=== PATIENT | male | born 1955 | race African-American/Black ===

== ENCOUNTER 2017-09-15 09:32 | Inpatient (IN) | payer OTHER ==
[2017-09-15 10:09] VITALS: BMI 27.9
--- NOTE | 2017-09-15 10:35 | HP ---
Admission [facility] Chief Complaint: I know I drink to much and I need help Allergies/Adverse Reactions: Allergies Allergy/AdvReac Type Severity Reaction Status Date / Time No Known Allergies Allergy Verified 09/15/17 10:18 History of Present Illness: 61 yo gentleman here for detox from alcohol - was in [place] ED yesterday for a seizure - alcohol related - on methadone program - had dose today and has bottle from [facility] for tomorrow . Exam Limitations: No Limitations - Ebola screening Have you traveled outside of the country in the last 21 days: No Have you had contact with anyone from an Ebola affected area: No Have you been sick,other than usual withdrawal symptoms: No Do you have a fever: No - Review of Systems Constitutional: Loss of Appetite, Malaise, Changes in sleep, Weakness EENT: reports: No Symptoms Reported Respiratory: reports: No Symptoms reported Cardiac: reports: No Symptoms Reported GI: reports: Poor Appetite : reports: Frequency Musculoskeletal: reports: Back Pain Integumentary: reports: No Symptoms Reported Neuro: reports: Headache Endocrine: reports: No Symptoms Reported Hematology: reports: No Symptoms Reported Psychiatric: reports: Mood/Affect Appropiate Other Systems: Reviewed and Negative Patient History - Patient Medical History Hx Anemia: No Hx Asthma: No Hx Chronic Obstructive Pulmonary Disease (COPD): No Hx Cancer: No Hx Cardiac Disorders: No Hx Congestive Heart Failure: No Hx Hypertension: Yes (on meds) Hx Hypercholesterolemia: No Hx Pacemaker: No HX Cerebrovascular Accident: No Hx Seizures: Yes (on meds) Hx Dementia: No Hx Diabetes: No Hx Gastrointestinal Disorders: No Hx Liver Disease: No Hx Genitourinary Disorders: No Hx Sexually Transmitted Disorders: No Hx Renal Disease (ESRD): No Hx Thyroid Disease: No Hx Human Immunodeficiency Virus (HIV): No Hx Hepatitis C: No Hx Depression: Yes (history of hospitalizations 'a while ago') Hx Suicide Attempt: No Hx Bipolar Disorder: No Hx Schizophrenia: Yes (not hearing voices now) - Patient Surgical History Past Surgical History: No - PPD History Previous Implant?: Yes Documented Results: Negative w/o proof Implanted On Prior [facility] Admission?: No PPD to be Administered?: Yes - Reproductive History Patient is a Female of Child Bearing Age (11 -55 yrs old): No (male) - Smoking Cessation Smoking history: Current every day smoker Have you smoked in the past 12 months: Yes Aproximately how many cigarettes per day: 10 Initiated information on smoking cessation: Yes 'Breaking Loose' booklet given: 09/15/17 (give on floor) - Substance & Tx. History Hx Alcohol Use: Yes Hx Substance Use: No Substance Use Type: Alcohol Hx Substance Use Treatment: Yes (methadone program) - Substances Abused Alcohol Route: Oral Frequency: Daily Amount used: 1 pint liquor Age of first use: 15 Date of Last Use: 09/14/17 Family Disease History - Family Disease History Family Disease History: Heart Disease: Father (,etoh), Mother () , Other: Father, Mother, Brother ( - heart, etoh), Sister (one living - healthy), Son (one - healthy), Daughter (two - healthy) Admission Physical Exam S - Vital Signs Vital Signs: Vital Signs - 24 hr 09/15/17 10:06 Temperature 95.8 F L Pulse Rate 61 Respiratory 20 Rate Blood Pressure 117/76 - Physical General Appearance: Yes: Nourished, Appropriately Dressed, Mild Distress, Anxious HEENTM: Yes: Hearing grossly Normal, Normal ENT Inspection, Normocephalic, Normal Voice Respiratory: Yes: Normal Breath Sounds, No Respiratory Distress Neck: Yes: No masses,lesions,Nodules, Supple Breast: Yes: Breast Exam Deferred Cardiology: Yes: Regular Rhythm, Regular Rate Abdominal: Yes: Flat, Soft Genitourinary: Yes: Frequency Back: Yes: Normal Inspection Musculoskeletal: Yes: full range of Motion, Gait Steady Extremities: Yes: Normal Inspection, Normal Range of Motion Neurological: Yes: Alert, Normal Mood/Affect, Normal Response Integumentary: Yes: Normal Color, Warm Lymphatic: Yes: Within Normal Limits - Diagnostic (1) Alcohol dependence with uncomplicated withdrawal Current Visit: Yes Status: Chronic (2) Methadone maintenance therapy patient Current Visit: Yes Status: Acute Comment: [facility] [phone] - brought in bottle for tomorrow - verified by myself (3) Nicotine dependence Current Visit: Yes Status: Acute Qualifiers: Nicotine product type: cigarettes Substance use status: uncomplicated Qualified Code(s): F17.210 - Nicotine dependence, cigarettes, uncomplicated (4) HTN (hypertension) Current Visit: Yes Status: Acute Qualifiers: Hypertension type: essential hypertension Qualified Code(s): I10 - Essential (primary) hypertension (5) History of seizure Current Visit: Yes Status: Acute Comment: on meds Cleared for Admission [facility] - Detox or Rehab [facility] Level of Care: Medically Managed Detox Regimen/Protocol: Librium [facility] Breath Alcohol Content Breath Alcohol Content: 0 Urine Drug Screen - Results Drug Screen Negative: No Urine Drug Screen Results: MTD-Methadone
[2017-09-15] MEDS ORDERED: MAG HYDROX/AL HYDROX/SIMETH 30 ML UNIT-DOSE CUP PO PRN (10:40)
[2017-09-15] MEDS ORDERED: MENTHOL/PHENOL 1 EACH UD MM PRN (10:40)
[2017-09-15] MEDS ORDERED: hydrOXYzine PAMOATE 25 MG CAPSULE (FP) PO PRN (10:40)
[2017-09-15] MEDS ORDERED: IBUPROFEN 400 MG TABLET (FP) PO PRN (10:40)
[2017-09-15] MEDS ORDERED: guaiFENesin/D-METHORPHAN HB 10 ML UNIT-DOSE CUPS PO PRN (10:40)
[2017-09-15] MEDS ORDERED: MAGNESIUM CITRATE 300 ML BOTTLE PO PRN (10:40)
[2017-09-15] MEDS ORDERED: ACETAMINOPHEN 325 MG TABLET (FP) PO PRN (10:40)
[2017-09-15] MEDS ORDERED: LOPERAMIDE HCL 2 MG CAPSULE PO PRN (10:40)
[2017-09-15] MEDS ORDERED: MAGNESIUM HYDROX 2400MG/30ML ORAL SUSPENSION 30 ML CUP PO PRN (10:40)
[2017-09-15] MEDS ORDERED: P-EPHED 60MG/TRIPROLIDI 2.5MG TABLET PO PRN (10:40)
[2017-09-15] MEDS ORDERED: chlordiazePOXIDE HCL 25 MG CAPSULE PO PRN (10:40)
[2017-09-15] MEDS ORDERED: chlordiazePOXIDE HCL 25 MG CAPSULE PO ONE (11:45)
[2017-09-15] MEDS: NICOTINE 21 MG/24 HOURS TOPICAL PATCH TD SCH (12:34)
[2017-09-15 15:34] LABS: URINE APPEARANCE SLCLOUDY; URINE BILIRUBIN NEGATIVE (NEGATIVE); URINE BLOOD NEGATIVE (NEGATIVE); URINE COLOR YELLOW; URINE GLUCOSE (UA) NEGATIVE (NEGATIVE); URINE KETONE NEGATIVE (NEGATIVE); URINE NITRITE NEGATIVE (NEGATIVE); URINE PROTEIN NEGATIVE (NEGATIVE); URINE UROBILINOGEN NEGATIVE mg/dL (0.2-1.0)
[2017-09-15 15:40] LABS: URINE LEUK ESTERASE 2+ (NEGATIVE)
[2017-09-15 15:48] LABS: URINE HYALINE CAST 1 /lpf; URINE RBC <1 /hpf (0-3); URINE WBC 12 /hpf (3-5)
--- NOTE | 2017-09-15 17:12 | CONSULT ---
[facility] Psychiatric Consult - Data Date of interview: 09/15/17 Admission source: [facility] Identifying data: First admission to [facility] for this 61 y/o AA male seeking detox treatment on for alcohol dependence.Patient is single,a father of three,homeless (penitentiary),unemployed and supported on SSI benefits. Substance Abuse History: Confirmed by patient in this session.See current [facility] report for details : Smoking history: Current every day smoker. Have you smoked in the past 12 months: Yes. Aproximately how many cigarettes per day: 10. Initiated information on smoking cessation: Yes. 'Breaking Loose' booklet given: 09/15/17 (give on floor). - Substance & Tx. History. Hx Alcohol Use: Yes. Hx Substance Use: No. Substance Use Type: Alcohol. Hx Substance Use Treatment: Yes (methadone program). - Substances Abused. Alcohol. Route: Oral. Frequency: Daily. Amount used: 1 pint liquor. Age of first use: 15. Date of Last Use: 09/14/17 Medical History: Seizure disorder and hypertension. Psychiatric History: Patient admits to a remote history of psychiatric hospitalizations ([facility] and [facility]).Diagnosed with Schizoaffective Disorder.Maintained on prozac,seroquel and buspar (doses not recalled).Mr Oli is followed at [facility] in [facility].Currently on methadone maintenance (50 mg/day).Patient denies history of suicide attempts. Physical/Sexual Abuse/Trauma History: Patient denies. Additional Comment: Urine Drug Screen Results: MTD-Methadone.Noted. Mental Status Exam - Mental Status Exam Alert and Oriented to: Time, Place, Person Cognitive Function: Grossly Intact Patient Appearance: Disheveled Mood: Nervous, Withdrawn, Anxious, Irritable Affect: Mood Congruent Patient Behavior: Fatigued, Appropriate, Cooperative Speech Pattern: Clear, Appropriate Voice Loudness: Normal Thought Process: Goal Oriented Thought Disorder: Not Present Hallucinations: Denies Suicidal Ideation: Denies Homicidal Ideation: Denies Insight/Judgement: Poor Sleep: Poorly, Difficulty falling asleep Appetite: Good Muscle strength/Tone: Normal Gait/Station: Normal Psychiatric Findings - Problem List ([place] 1, 2,3) (1) Alcohol dependence with uncomplicated withdrawal Current Visit: Yes Status: Acute (2) Opioid dependence on agonist therapy Current Visit: Yes Status: Acute (3) Nicotine dependence Current Visit: Yes Status: Acute Qualifiers: Nicotine product type: cigarettes Substance use status: in withdrawal Qualified Code(s): F17.213 - Nicotine dependence, cigarettes, with withdrawal (4) Schizoaffective disorder Current Visit: Yes Status: Chronic Comment: As per self-report.On medications.Currently with OPD care. (5) Insomnia Current Visit: Yes Status: Acute - Initial Treatment Plan Initial Treatment Plan: Psychoeducation.Sleep hygiene.Detoxification.Resume prozac 20 mg/day + depakote 500 mg po bid + seroquel 50 mg po hs (to be titrated ).Side effects/benefits of each drug are discussed with the patient in this session.Mr Baird is in agreement with this plan of care.Will follow valproic acid level.Observation.
[2017-09-15] MEDS: chlordiazePOXIDE HCL 25 MG CAPSULE PO SCH ×2 (17:13→22:46)
[2017-09-15] MEDS: NICOTINE POLACRILEX 4 MG GUM BUC PRN (17:57)
[2017-09-15 19:31] LABS: URINE LEUK ESTERASE TRACE (NEGATIVE)
[2017-09-15] MEDS ORDERED: PATIENT'S OWN MEDICATION (NON-FORMULARY) (Levetiracetam [Keppra -] 750 MG) PO SCH (22:00)
[2017-09-15] MEDS: DIVALPROEX SODIUM 500 MG TABLET E.C. PO SCH (22:46)
[2017-09-15] MEDS: GABAPENTIN 400 MG CAPSULE (FP) PO SCH (22:46)
[2017-09-15] MEDS: THIAMINE HCL 100 MG TABLET (FP) PO SCH (22:46)
[2017-09-15] MEDS: QUEtiapine FUMARATE 50 MG TABLET PO SCH (22:46)
[2017-09-15] MEDS: levETIRAcetam 250 MG TABLET (FP) PO SCH (22:46)
[2017-09-16] MEDS ORDERED: METHADONE HCL 40 MG DISPERSABLE TABLET ONE (05:00)
[2017-09-16] MEDS ORDERED: METHADONE HCL 10 MG TABLET ONE (05:00)
[2017-09-16] MEDS ORDERED: METHADONE HCL 10 MG TABLET PO ONE (06:00)
[2017-09-16] MEDS ORDERED: METHADONE 40 MG, METHADONE 10 MG PO ONE (06:00)
[2017-09-16] MEDS: chlordiazePOXIDE HCL 25 MG CAPSULE PO SCH ×4 (06:09→22:38)
[2017-09-16] MEDS: FLUoxetine HCL 20 MG CAPSULE (FP) PO SCH (10:23)
[2017-09-16] MEDS: DIVALPROEX SODIUM 500 MG TABLET E.C. PO SCH ×2 (10:23→22:38)
[2017-09-16] MEDS: PROPRANOLOL HCL 20 MG TABLET PO SCH (10:23)
[2017-09-16] MEDS: GABAPENTIN 400 MG CAPSULE (FP) PO SCH ×2 (10:23→22:38)
[2017-09-16] MEDS: PRENATAL VITAMINS W/ FOLIC ACID TABLET (FP) PO SCH (10:23)
[2017-09-16] MEDS: NICOTINE 21 MG/24 HOURS TOPICAL PATCH TD SCH (10:24)
[2017-09-16] MEDS: levETIRAcetam 250 MG TABLET (FP) PO SCH ×2 (10:24→22:38)
[2017-09-16 10:42] LABS: ANION GAP 7 (8-16); BILIRUBIN,TOTAL 0.4 mg/dL (0.2-1.0); CALCIUM 8.3 mg/dL (8.5-10.1); CO2 29 mmol/L (21-32); CREATININE 0.7 mg/dL (0.7-1.3); GLUCOSE,RANDOM 83 mg/dL (74-106); SGOT/AST 22 U/L (15-37); SGPT/ALT 17 U/L (12-78); TOT PROT 6.6 g/dl (6.4-8.2)
[2017-09-16 10:43] LABS: ALK PHOS 134 U/L (45-117)
[2017-09-16 11:25] LABS: MCH 26.9 pg (25.7-33.7); MCHC 30.7 g/dl (32.0-35.9); MEAN CELL VOLUME 87.6 fl (80-96); MEAN PLT VOLUME 9.5 fl (7.5-11.1); PLATELET COUNT 163 K/MM3 (134-434); RDW 25.5 % (11.9-15.9); WHITE BLOOD COUNT 11.7 K/mm3 (4.0-10.0)
[2017-09-16 12:51] LABS: SICKLE CELL SCREEN NEGATIVE (NEGATIVE)
--- NOTE | 2017-09-16 14:01 | PN ---
[facility] CIWA - CIWA Score Nausea/Vomitin-No Nausea/No Vomiting Muscle Tremors: 4-Moderate,w/Arms Extend Anxiety: 4-Mod. Anxious/Guarded Agitation: 4-Moderately Restless Paroxysmal Sweats: 5 Orientation: 0-Oriented Tacttile Disturbances: 1-Very Mild Itch/Numbness Auditory Disturbances: 0-None Visual Disturbances: 0-None Headache: 0-None Present CIWA-Ar Total Score: 18 S Progress Note (SOAP) Subjective: Sweating, tremor, interrupted sleep Objective: 09/16/17 13:55 Last Vital Signs Temp Pulse Resp BP Pulse Ox 97.7 F 66 19 95/65 09/16/17 13:25 09/16/17 13:25 09/16/17 13:25 09/16/17 13:25 B/P noted : hypotension Laboratory Tests 09/15/17 09/16/17 09/16/17 15:13 07:30 07:30 WBC 11.7 H RBC 4.37 Hgb 11.8 Hct 38.3 MCV 87.6 MCH 26.9 MCHC 30.7 L RDW 25.5 H Plt Count 163 MPV 9.5 Sickle Cell Screen Negative Sodium 141 Potassium 3.9 Chloride 105 Carbon Dioxide 29 Anion Gap 7 L BUN 14 Creatinine 0.7 Creat Clearance w eGFR > 60 Random Glucose 83 Calcium 8.3 L Total Bilirubin 0.4 AST 22 ALT 17 Alkaline Phosphatase 134 H Total Protein 6.6 Albumin 3.0 L Urine Color Yellow Urine Appearance Slcloudy Urine pH 5.0 Ur Specific [place] 1.015 Urine Protein Negative Urine Glucose (UA) Negative Urine Ketones Negative Urine Blood Negative Urine Nitrite Negative Urine Bilirubin Negative Urine Urobilinogen Negative Ur Leukocyte Esterase Trace H Urine WBC (Auto) 12 Urine RBC (Auto) <1 Ur Epithelial Cells Rare Hyaline Casts 1 Valproic Acid RPR Titer 09/16/17 09/16/17 07:30 07:30 WBC RBC Hgb Hct MCV MCH MCHC RDW Plt Count MPV Sickle Cell Screen Sodium Potassium Chloride Carbon Dioxide Anion Gap BUN Creatinine Creat Clearance w eGFR Random Glucose Calcium Total Bilirubin AST ALT Alkaline Phosphatase Total Protein Albumin Urine Color Urine Appearance Urine pH Ur Specific [place] Urine Protein Urine Glucose (UA) Urine Ketones Urine Blood Urine Nitrite Urine Bilirubin Urine Urobilinogen Ur Leukocyte Esterase Urine WBC (Auto) Urine RBC (Auto) Ur Epithelial Cells Hyaline Casts Valproic Acid 55.2 RPR Titer Nonreactive Labs noted: wbc 11.7 Assessment: 09/16/17 13:59 Withdrawal symptoms Noted with hypotension and leukocytosis Plan: Continue detox Hypotension: encouraged to drink lots of water, continue to monitor Leukocytosis: asymptomatic for infection, repeat cbc
[2017-09-16] MEDS: NICOTINE POLACRILEX 4 MG GUM BUC PRN (19:46)
[2017-09-16] MEDS: QUEtiapine FUMARATE 50 MG TABLET PO SCH (22:38)
[2017-09-16] MEDS: THIAMINE HCL 100 MG TABLET (FP) PO SCH (22:38)
[2017-09-17] MEDS: chlordiazePOXIDE HCL 25 MG CAPSULE PO SCH ×2 (06:17→10:31)
[2017-09-17] MEDS ORDERED: METHADONE HCL 10 MG TABLET PO SCH (07:15)
[2017-09-17] MEDS ORDERED: METHADONE HCL 10 MG TABLET ONE (07:20)
[2017-09-17] MEDS ORDERED: METHADONE HCL 40 MG DISPERSABLE TABLET ONE (07:21)
[2017-09-17] MEDS: METHADONE 40 MG, METHADONE 10 MG PO SCH (07:24)
[2017-09-17 10:03] LABS: BASO % 0.4 % (0-2.0); EOS % 5.2 % (0-4.5); MCH 27.1 pg (25.7-33.7); MCHC 30.8 g/dl (32.0-35.9); MEAN CELL VOLUME 87.8 fl (80-96); MEAN PLT VOLUME 9.6 fl (7.5-11.1); NEUT % 70.1 % (42.8-82.8); PLATELET COUNT 166 K/MM3 (134-434); RDW 25.3 % (11.9-15.9); WHITE BLOOD COUNT 11.8 K/mm3 (4.0-10.0)
[2017-09-17] MEDS: DIVALPROEX SODIUM 500 MG TABLET E.C. PO SCH ×2 (10:30→22:03)
[2017-09-17] MEDS: levETIRAcetam 250 MG TABLET (FP) PO SCH ×2 (10:31→22:03)
[2017-09-17] MEDS: FLUoxetine HCL 20 MG CAPSULE (FP) PO SCH (10:31)
[2017-09-17] MEDS: NICOTINE 21 MG/24 HOURS TOPICAL PATCH TD SCH (10:31)
[2017-09-17] MEDS: PROPRANOLOL HCL 20 MG TABLET PO SCH (10:31)
[2017-09-17] MEDS: PRENATAL VITAMINS W/ FOLIC ACID TABLET (FP) PO SCH (10:31)
[2017-09-17] MEDS: GABAPENTIN 400 MG CAPSULE (FP) PO SCH ×2 (10:31→22:03)
[2017-09-17 12:36] LABS: MICROCYTOSIS 2+
[2017-09-17 12:37] LABS: ANISOCYTOSIS 3+; MACROCYTOSIS 1+; OVALOCYTE 1+
--- NOTE | 2017-09-17 12:38 | PN ---
[facility] CIWA - CIWA Score Nausea/Vomitin-No Nausea/No Vomiting Muscle Tremors: 4-Moderate,w/Arms Extend Anxiety: 4-Mod. Anxious/Guarded Agitation: 4-Moderately Restless Paroxysmal Sweats: 1-Minimal Palms Moist Orientation: 0-Oriented Tacttile Disturbances: 3-Moderate Itch/Numb/Burn Auditory Disturbances: 0-None Visual Disturbances: 0-None Headache: 0-None Present CIWA-Ar Total Score: 16 [facility] Progress Note (SOAP) Subjective: ANXIETY,SWEATS,TREMORS,FATIGUE,INTERMITTENT SLEEP. Objective: 09/17/17 12:36 Vital Signs Temperature 97.9 F 09/17/17 09:19 Pulse Rate 70 09/17/17 09:19 Respiratory Rate 20 09/17/17 09:19 Blood Pressure 111/74 09/17/17 09:19 O2 Sat by Pulse Oximetry (%) Laboratory Last Values WBC 11.8 K/mm3 (4.0-10.0) H 09/17/17 07:00 RBC 4.43 M/mm3 (4.00-5.60) 09/17/17 07:00 Hgb 12.0 GM/dL (11.7-16.9) 09/17/17 07:00 Hct 38.9 % (35.4-49) 09/17/17 07:00 MCV 87.8 fl (80-96) 09/17/17 07:00 MCH 27.1 pg (25.7-33.7) 09/17/17 07:00 MCHC 30.8 g/dl (32.0-35.9) L 09/17/17 07:00 RDW 25.3 % (11.9-15.9) H 09/17/17 07:00 Plt Count 166 K/MM3 (134-434) 09/17/17 07:00 MPV 9.6 fl (7.5-11.1) 09/17/17 07:00 Neutrophils % 70.1 % (42.8-82.8) 09/17/17 07:00 Lymphocytes % 16.8 % (8-40) 09/17/17 07:00 Monocytes % 7.5 % (3.8-10.2) 09/17/17 07:00 Eosinophils % 5.2 % (0-4.5) H 09/17/17 07:00 Basophils % 0.4 % (0-2.0) 09/17/17 07:00 Sickle Cell Screen Negative (NEGATIVE) 09/16/17 07:30 Sodium 141 mmol/L (136-145) 09/16/17 07:30 Potassium 3.9 mmol/L (3.5-5.1) 09/16/17 07:30 Chloride 105 mmol/L (98-107) 09/16/17 07:30 Carbon Dioxide 29 mmol/L (21-32) 09/16/17 07:30 Anion Gap 7 (8-16) L 09/16/17 07:30 BUN 14 mg/dL (7-18) 09/16/17 07:30 Creatinine 0.7 mg/dL (0.7-1.3) 09/16/17 07:30 Creat Clearance w eGFR > 60 (>60) 09/16/17 07:30 Random Glucose 83 mg/dL (74-106) 09/16/17 07:30 Calcium 8.3 mg/dL (8.5-10.1) L 09/16/17 07:30 Total Bilirubin 0.4 mg/dL (0.2-1.0) 09/16/17 07:30 AST 22 U/L (15-37) 09/16/17 07:30 ALT 17 U/L (12-78) 09/16/17 07:30 Alkaline Phosphatase 134 U/L (45-117) H 09/16/17 07:30 Total Protein 6.6 g/dl (6.4-8.2) 09/16/17 07:30 Albumin 3.0 g/dl (3.4-5.0) L 09/16/17 07:30 Urine Color Yellow 09/15/17 15:13 Urine Appearance Slcloudy 09/15/17 15:13 Urine pH 5.0 (5.0-8.0) 09/15/17 15:13 Ur Specific [place] 1.015 (1.001-1.035) 09/15/17 15:13 Urine Protein Negative (NEGATIVE) 09/15/17 15:13 Urine Glucose (UA) Negative (NEGATIVE) 09/15/17 15:13 Urine Ketones Negative (NEGATIVE) 09/15/17 15:13 Urine Blood Negative (NEGATIVE) 09/15/17 15:13 Urine Nitrite Negative (NEGATIVE) 09/15/17 15:13 Urine Bilirubin Negative (NEGATIVE) 09/15/17 15:13 Urine Urobilinogen Negative mg/dL (0.2-1.0) 09/15/17 15:13 Ur Leukocyte Esterase Trace (NEGATIVE) H 09/15/17 15:13 Urine WBC (Auto) 12 /hpf (3-5) 09/15/17 15:13 Urine RBC (Auto) <1 /hpf (0-3) 09/15/17 15:13 Ur Epithelial Cells Rare /HPF (FEW) 09/15/17 15:13 Hyaline Casts 1 /lpf 09/15/17 15:13 Valproic Acid 55.2 ug/ml (50-100) 09/16/17 07:30 RPR Titer Nonreactive (NONREACTIVE) 09/16/17 07:30 ABNORMAL UA Assessment: 09/17/17 12:37 WITHDRAWAL SX Plan: CONTINUE DETOX INCREASE PO FLUIDS REPEAT UA;UC
--- NOTE | 2017-09-17 15:30 | PN ---
S Progress Note Note: Psychiatry Attending's note : Valproic acid level = 55.2 Valproate well tolerated. Patient is adherent to medications. Will follow. Addendum : I contacted [facility] at [phone]. With patient's authorization (verbal). Medications verified with pharmacist : Depakote 500 mg po bid risperdal 2 mg po hs seroquel 100 mg po daily buspar 15 mg po bid gabapentin 400 mg po bid prozac 20 mg po daily NO scripts required at discharge. Refills picked up on 09/14/17.
[2017-09-17] MEDS: chlordiazePOXIDE 5 MG CAPSULE PO SCH ×2 (17:06→22:03)
[2017-09-17] MEDS: THIAMINE HCL 100 MG TABLET (FP) PO SCH (22:03)
--- NOTE | 2017-09-18 01:57 | EKG ---
Test Reason : Blood Pressure : / mmHG Vent. Rate : 056 BPM Atrial Rate : 056 BPM P-R Int : 154 ms QRS Dur : 084 ms QT Int : 478 ms P-R-T Axes : 016 068 051 degrees QTc Int : 461 ms SINUS BRADYCARDIA OTHERWISE NORMAL ECG NO PREVIOUS ECGS AVAILABLE Confirmed by LISA FRANCISCO MD ([id number]) on 09/18/2017 1:56:41 AM Referred By: Confirmed By:LISA FRANCISCO MD
[2017-09-18] MEDS ORDERED: METHADONE HCL 10 MG TABLET ONE (03:25)
[2017-09-18] MEDS ORDERED: METHADONE HCL 40 MG DISPERSABLE TABLET ONE (03:25)
[2017-09-18] MEDS: METHADONE 40 MG, METHADONE 10 MG PO SCH (05:46)
[2017-09-18] MEDS: chlordiazePOXIDE 5 MG CAPSULE PO SCH ×2 (05:47→10:40)
[2017-09-18] MEDS: GABAPENTIN 400 MG CAPSULE (FP) PO SCH ×2 (10:26→22:02)
[2017-09-18] MEDS: PRENATAL VITAMINS W/ FOLIC ACID TABLET (FP) PO SCH (10:26)
[2017-09-18] MEDS: PROPRANOLOL HCL 20 MG TABLET PO SCH (10:26)
[2017-09-18] MEDS: DIVALPROEX SODIUM 500 MG TABLET E.C. PO SCH ×2 (10:26→22:02)
[2017-09-18] MEDS: NICOTINE 21 MG/24 HOURS TOPICAL PATCH TD SCH (10:27)
[2017-09-18] MEDS: levETIRAcetam 250 MG TABLET (FP) PO SCH ×2 (10:27→22:02)
[2017-09-18] MEDS: FLUoxetine HCL 20 MG CAPSULE (FP) PO SCH (10:27)
--- NOTE | 2017-09-18 12:02 | PN ---
[facility] Progress Note (SOAP) Subjective: ANXIETY,CHILLS,SWEATS,SLIGHTLY DROWSY-SLEEP/WALKING AND NODDING OFF IN DAYROOM. PT REDIRECTED AND HELPED TO HIS ROOM. Objective: 09/18/17 12:02 Vital Signs Temperature 98.4 F 09/18/17 09:05 Pulse Rate 82 09/18/17 09:05 Respiratory Rate 18 09/18/17 09:05 Blood Pressure 112/69 09/18/17 09:05 O2 Sat by Pulse Oximetry (%) Laboratory Last Values WBC 11.8 K/mm3 (4.0-10.0) H 09/17/17 07:00 RBC 4.43 M/mm3 (4.00-5.60) 09/17/17 07:00 Hgb 12.0 GM/dL (11.7-16.9) 09/17/17 07:00 Hct 38.9 % (35.4-49) 09/17/17 07:00 MCV 87.8 fl (80-96) 09/17/17 07:00 MCH 27.1 pg (25.7-33.7) 09/17/17 07:00 MCHC 30.8 g/dl (32.0-35.9) L 09/17/17 07:00 RDW 25.3 % (11.9-15.9) H 09/17/17 07:00 Plt Count 166 K/MM3 (134-434) 09/17/17 07:00 MPV 9.6 fl (7.5-11.1) 09/17/17 07:00 Neutrophils % 70.1 % (42.8-82.8) 09/17/17 07:00 Lymphocytes % 16.8 % (8-40) 09/17/17 07:00 Monocytes % 7.5 % (3.8-10.2) 09/17/17 07:00 Eosinophils % 5.2 % (0-4.5) H 09/17/17 07:00 Basophils % 0.4 % (0-2.0) 09/17/17 07:00 Anisocytosis 3+ 09/17/17 07:00 Microcytosis 2+ 09/17/17 07:00 Macrocytosis 1+ 09/17/17 07:00 Ovalocytes 1+ 09/17/17 07:00 Sickle Cell Screen Negative (NEGATIVE) 09/16/17 07:30 Sodium 141 mmol/L (136-145) 09/16/17 07:30 Potassium 3.9 mmol/L (3.5-5.1) 09/16/17 07:30 Chloride 105 mmol/L (98-107) 09/16/17 07:30 Carbon Dioxide 29 mmol/L (21-32) 09/16/17 07:30 Anion Gap 7 (8-16) L 09/16/17 07:30 BUN 14 mg/dL (7-18) 09/16/17 07:30 Creatinine 0.7 mg/dL (0.7-1.3) 09/16/17 07:30 Creat Clearance w eGFR > 60 (>60) 09/16/17 07:30 Random Glucose 83 mg/dL (74-106) 09/16/17 07:30 Calcium 8.3 mg/dL (8.5-10.1) L 09/16/17 07:30 Total Bilirubin 0.4 mg/dL (0.2-1.0) 09/16/17 07:30 AST 22 U/L (15-37) 09/16/17 07:30 ALT 17 U/L (12-78) 09/16/17 07:30 Alkaline Phosphatase 134 U/L (45-117) H 09/16/17 07:30 Total Protein 6.6 g/dl (6.4-8.2) 09/16/17 07:30 Albumin 3.0 g/dl (3.4-5.0) L 09/16/17 07:30 Urine Color Yellow 09/15/17 15:13 Urine Appearance Slcloudy 09/15/17 15:13 Urine pH 5.0 (5.0-8.0) 09/15/17 15:13 Ur Specific [place] 1.015 (1.001-1.035) 09/15/17 15:13 Urine Protein Negative (NEGATIVE) 09/15/17 15:13 Urine Glucose (UA) Negative (NEGATIVE) 09/15/17 15:13 Urine Ketones Negative (NEGATIVE) 09/15/17 15:13 Urine Blood Negative (NEGATIVE) 09/15/17 15:13 Urine Nitrite Negative (NEGATIVE) 09/15/17 15:13 Urine Bilirubin Negative (NEGATIVE) 09/15/17 15:13 Urine Urobilinogen Negative mg/dL (0.2-1.0) 09/15/17 15:13 Ur Leukocyte Esterase Trace (NEGATIVE) H 09/15/17 15:13 Urine WBC (Auto) 12 /hpf (3-5) 09/15/17 15:13 Urine RBC (Auto) <1 /hpf (0-3) 09/15/17 15:13 Ur Epithelial Cells Rare /HPF (FEW) 09/15/17 15:13 Hyaline Casts 1 /lpf 09/15/17 15:13 Valproic Acid 55.2 ug/ml (50-100) 09/16/17 07:30 RPR Titer Nonreactive (NONREACTIVE) 09/16/17 07:30 Assessment: 09/18/17 12:03 WITHDRAWAL SX Plan: CONTINUE DETOX MAINTAIN SAFETY
[2017-09-18 14:53] LABS: URINE APPEARANCE CLEAR; URINE BILIRUBIN NEGATIVE (NEGATIVE); URINE BLOOD NEGATIVE (NEGATIVE); URINE COLOR YELLOW; URINE GLUCOSE (UA) NEGATIVE (NEGATIVE); URINE KETONE NEGATIVE (NEGATIVE); URINE NITRITE NEGATIVE (NEGATIVE); URINE PROTEIN NEGATIVE (NEGATIVE); URINE UROBILINOGEN NEGATIVE mg/dL (0.2-1.0)
[2017-09-18 15:12] LABS: URINE LEUK ESTERASE 1+ (NEGATIVE)
[2017-09-18] MEDS: chlordiazePOXIDE HCL 10 MG CAPSULE PO SCH ×2 (17:12→22:02)
[2017-09-18 17:54] LABS: URINE BACTERIA FEW /hpf (NONE SEEN); URINE MUCUS RARE; URINE RBC 1 /hpf (0-3); URINE WBC 14 /hpf (3-5)
[2017-09-18 21:01] LABS: URINE LEUK ESTERASE TRACE (NEGATIVE)
[2017-09-18] MEDS: THIAMINE HCL 100 MG TABLET (FP) PO SCH (22:02)
[2017-09-19] MEDS ORDERED: METHADONE HCL 10 MG TABLET ONE (04:12)
[2017-09-19] MEDS ORDERED: METHADONE HCL 40 MG DISPERSABLE TABLET ONE (04:12)
[2017-09-19] MEDS: METHADONE 40 MG, METHADONE 10 MG PO SCH (06:21)
[2017-09-19] MEDS: chlordiazePOXIDE HCL 10 MG CAPSULE PO SCH ×2 (06:22→10:24)
[2017-09-19 09:09] VITALS: BP 109/67; PULSE 70; TEMP 97.5
[2017-09-19] MEDS: NICOTINE 21 MG/24 HOURS TOPICAL PATCH TD SCH (10:23)
[2017-09-19] MEDS: levETIRAcetam 250 MG TABLET (FP) PO SCH (10:23)
[2017-09-19] MEDS: DIVALPROEX SODIUM 500 MG TABLET E.C. PO SCH (10:23)
[2017-09-19] MEDS: PROPRANOLOL HCL 20 MG TABLET PO SCH (10:23)
[2017-09-19] MEDS: GABAPENTIN 400 MG CAPSULE (FP) PO SCH (10:23)
[2017-09-19] MEDS: PRENATAL VITAMINS W/ FOLIC ACID TABLET (FP) PO SCH (10:24)
[2017-09-19] MEDS: FLUoxetine HCL 20 MG CAPSULE (FP) PO SCH (10:24)
--- NOTE | 2017-09-19 10:50 | DS ---
[facility] Detox Discharge Summary Admission Date: 09/15/17 Discharge Date: 09/19/17 - History Present History: Alcohol Dependence, MMTP Additional Comments: DETOX COMPLETED. ALERT O X 3. NAD. PT TO FOLLOW UP WITH HIS PCP AT [facility]. Pertinent Past History: SEIZURE DISORDER HTN - Physical Exam Results Vital Signs: Vital Signs Temperature 97.5 F L 09/19/17 09:08 Pulse Rate 70 09/19/17 09:08 Respiratory Rate 18 09/19/17 09:08 Blood Pressure 109/67 09/19/17 09:08 O2 Sat by Pulse Oximetry (%) Pertinent Admission Physical Exam Findings: WITHDRAWAL SX Vital Signs Temperature 97.5 F L 09/19/17 09:08 Pulse Rate 70 09/19/17 09:08 Respiratory Rate 18 09/19/17 09:08 Blood Pressure 109/67 09/19/17 09:08 O2 Sat by Pulse Oximetry (%) Laboratory Last Values WBC 11.8 K/mm3 (4.0-10.0) H 09/17/17 07:00 RBC 4.43 M/mm3 (4.00-5.60) 09/17/17 07:00 Hgb 12.0 GM/dL (11.7-16.9) 09/17/17 07:00 Hct 38.9 % (35.4-49) 09/17/17 07:00 MCV 87.8 fl (80-96) 09/17/17 07:00 MCH 27.1 pg (25.7-33.7) 09/17/17 07:00 MCHC 30.8 g/dl (32.0-35.9) L 09/17/17 07:00 RDW 25.3 % (11.9-15.9) H 09/17/17 07:00 Plt Count 166 K/MM3 (134-434) 09/17/17 07:00 MPV 9.6 fl (7.5-11.1) 09/17/17 07:00 Neutrophils % 70.1 % (42.8-82.8) 09/17/17 07:00 Lymphocytes % 16.8 % (8-40) 09/17/17 07:00 Monocytes % 7.5 % (3.8-10.2) 09/17/17 07:00 Eosinophils % 5.2 % (0-4.5) H 09/17/17 07:00 Basophils % 0.4 % (0-2.0) 09/17/17 07:00 Anisocytosis 3+ 09/17/17 07:00 Microcytosis 2+ 09/17/17 07:00 Macrocytosis 1+ 09/17/17 07:00 Ovalocytes 1+ 09/17/17 07:00 Sickle Cell Screen Negative (NEGATIVE) 09/16/17 07:30 Sodium 141 mmol/L (136-145) 09/16/17 07:30 Potassium 3.9 mmol/L (3.5-5.1) 09/16/17 07:30 Chloride 105 mmol/L (98-107) 09/16/17 07:30 Carbon Dioxide 29 mmol/L (21-32) 09/16/17 07:30 Anion Gap 7 (8-16) L 09/16/17 07:30 BUN 14 mg/dL (7-18) 09/16/17 07:30 Creatinine 0.7 mg/dL (0.7-1.3) 09/16/17 07:30 Creat Clearance w eGFR > 60 (>60) 09/16/17 07:30 Random Glucose 83 mg/dL (74-106) 09/16/17 07:30 Calcium 8.3 mg/dL (8.5-10.1) L 09/16/17 07:30 Total Bilirubin 0.4 mg/dL (0.2-1.0) 09/16/17 07:30 AST 22 U/L (15-37) 09/16/17 07:30 ALT 17 U/L (12-78) 09/16/17 07:30 Alkaline Phosphatase 134 U/L (45-117) H 09/16/17 07:30 Total Protein 6.6 g/dl (6.4-8.2) 09/16/17 07:30 Albumin 3.0 g/dl (3.4-5.0) L 09/16/17 07:30 Urine Color Yellow 09/18/17 10:50 Urine Appearance Clear 09/18/17 10:50 Urine pH 6.0 (5.0-8.0) 09/18/17 10:50 Ur Specific [place] 1.018 (1.001-1.035) 09/18/17 10:50 Urine Protein Negative (NEGATIVE) 09/18/17 10:50 Urine Glucose (UA) Negative (NEGATIVE) 09/18/17 10:50 Urine Ketones Negative (NEGATIVE) 09/18/17 10:50 Urine Blood Negative (NEGATIVE) 09/18/17 10:50 Urine Nitrite Negative (NEGATIVE) 09/18/17 10:50 Urine Bilirubin Negative (NEGATIVE) 09/18/17 10:50 Urine Urobilinogen Negative mg/dL (0.2-1.0) 09/18/17 10:50 Ur Leukocyte Esterase Trace (NEGATIVE) H 09/18/17 10:50 Urine WBC (Auto) 14 /hpf (3-5) 09/18/17 10:50 Urine RBC (Auto) 1 /hpf (0-3) 09/18/17 10:50 Ur Epithelial Cells Rare /HPF (FEW) 09/18/17 10:50 Urine Bacteria Few /hpf (NONE SEEN) 09/18/17 10:50 Hyaline Casts 1 /lpf 09/15/17 15:13 Urine Mucus Rare 09/18/17 10:50 Valproic Acid 55.2 ug/ml (50-100) 09/16/17 07:30 RPR Titer Nonreactive (NONREACTIVE) 09/16/17 07:30 UC RESULT PENDING COPY OF LAB RESULTS GIVEN TO PT TO FOLLOW UP WITH HIS PCP AT [facility]. PT DENIES ANY SYMPTOMS AT THIS TIME. ENCOURAGED INCREASE FLUIDS WHICH HE ADMITS NOT DRINKING ANY APPRECIABLE AMOUNT OF WATER THROUGHOUT THE DAY. - Treatment Hospital Course: Detox Protocol Followed, Detoxed Safely, Responded well, Discharged Condition Good - Medication Discharge Medications: Ambulatory Orders Buspirone HCl [Buspar -] 15 mg PO BID 09/15/17 Divalproex [Depakote -] 500 mg PO BID 09/15/17 Ergocalciferol (Vitamin D2) [Vitamin D2] 50,000 unit PO WEEKLY 09/15/17 Fluoxetine HCl [Prozac -] 20 mg PO DAILY 09/15/17 Gabapentin [Neurontin -] 400 mg PO BID 09/15/17 Levetiracetam [Keppra -] 750 mg PO BID 09/15/17 Methadone HCl [Methadone Intensol] 50 mg PO DAILY 09/15/17 Propranolol HCl [Inderal] 20 mg PO DAILY 09/15/17 Quetiapine Fumarate [Seroquel] 100 tab PO DAILY 09/15/17 Risperidone [Risperdal -] 2 mg PO HS 09/15/17 - Diagnosis (1) Alcohol dependence with uncomplicated withdrawal Status: Acute (2) Leukocytosis Status: Acute (3) HTN (hypertension) Status: Chronic Qualifiers: Hypertension type: essential hypertension Qualified Code(s): I10 - Essential (primary) hypertension (4) History of seizure Status: Chronic (5) Methadone maintenance therapy patient Status: Chronic (6) Nicotine dependence Status: Acute Qualifiers: Nicotine product type: cigarettes Substance use status: in withdrawal Qualified Code(s): F17.213 - Nicotine dependence, cigarettes, with withdrawal (7) Abnormal urinalysis Status: Acute - AMA Did Patient Leave Against Medical Advice: No
== END 2017-09-19 09:32 | disposition home or self-care (01) | DRG 773 ==
LOC: YASAS 09:32 → Y3N 11:13
PROVIDERS: ADMIT Internal Medicine; ATTEND Internal Medicine
PROC: HZ2ZZZZ Detoxification Services for Substance Abuse Treatment (ICD-10-PCS; principal; 2017-09-15)
DX: F10.230 Alcohol dependence with withdrawal, uncomplicated (principal); F11.20 Opioid dependence, uncomplicated; F17.213 Nicotine dependence, cigarettes, with withdrawal; F25.9 Schizoaffective disorder, unspecified; F32.9 Major depressive disorder, single episode, unspecified; I10 Essential (primary) hypertension; D72.829 Elevated white blood cell count, unspecified; R82.90 Unspecified abnormal findings in urine; I95.9 Hypotension, unspecified; Z86.69 Personal history of other diseases of the nervous system and sense organs
CPT/HCPCS: 36415; 80053; 80164; 81003; 81015; 85025; 85027; 85660; 86593; 87086; 87186; 93005; 93010

== ENCOUNTER 2022-05-15 12:00 | Inpatient (IN) | payer OTHER ==
[2022-05-15 12:40] VITALS: BMI 30.1
[2022-05-15] MEDS ORDERED: DEXTROSE 50%-WATER - 25 GM/50 ML VIAL IVPUSH ONE (12:57)
[2022-05-15] MEDS ORDERED: DEXTROSE 50%-WATER 25 GM/50 ML DISP.SYRIN ONE ×2 (12:58→13:58)
[2022-05-15 13:43] LABS: BASO % 1.3 % (0-2.0); EOS % 3.5 % (0-4.5); HEMATOCRIT 32.1 % (35.4-49); HEMOGLOBIN 10.5 GM/dL (11.7-16.9); LYMPH % 16.8 % (8-40); MCHC 32.6 g/dl (32.0-35.9); MEAN PLT VOLUME 9.2 fl (7.5-11.1); MONO % 9.9 % (3.8-10.2); NEUT % 68.5 % (42.8-82.8); PLATELET COUNT 252 10^3/uL (134-434); RBC 3.61 M/mm3 (4.00-5.60); RDW 19.4 % (11.9-15.9); WHITE BLOOD COUNT 7.4 K/mm3 (4.0-10.0)
[2022-05-15 13:44] LABS: VENOUS BASE EXCESS 6.1 mmol/L (-2-2); VENOUS PH 7.288 (7.310-7.410)
[2022-05-15 13:46] LABS: VENOUS PCO2 74.3 mmHg (38-52)
[2022-05-15 14:10] LABS: ALBUMIN 2.9 g/dl (3.4-5.0); BLOOD UREA NITROGEN 13.3 mg/dL (7-18)
[2022-05-15 14:13] LABS: CREATININE 0.7 mg/dL (0.55-1.3)
[2022-05-15 14:15] LABS: BILIRUBIN,TOTAL 0.2 mg/dL (0.2-1); TOT PROT 7.2 g/dl (6.4-8.2)
[2022-05-15 15:09] LABS: ARTERIAL BLD GAS O2 SATURATION 98.8 % (95-98); ARTERIAL BLOOD GAS BASE EXCESS 1.3 mmol/L (-2-2); ARTERIAL BLOOD GAS PO2 144.7 mmHg (80-100)
[2022-05-15 23:10] LABS: CALCIUM 8.9 mg/dL (8.5-10.1)
[2022-05-15 23:11] LABS: BLOOD UREA NITROGEN 9.4 mg/dL (7-18)
[2022-05-15 23:14] LABS: CREATININE 0.7 mg/dL (0.55-1.3)
[2022-05-16 01:50] LABS: EPI CELLS 1 /uL (0-25.1); HYALINE CASTS 0 /uL (0-3.1); PH,URINE 8.5 (5.0-8.0); URINE APPEARANCE CLEAR; URINE BACTERIA 10 /uL (0-1359); URINE BILIRUBIN NEGATIVE (NEGATIVE); URINE COLOR YELLOW; URINE GLUCOSE (UA) NEGATIVE (NEGATIVE); URINE KETONE NEGATIVE (NEGATIVE); URINE LEUK ESTERASE NEGATIVE (NEGATIVE); URINE NITRITE NEGATIVE (NEGATIVE); URINE PROTEIN NEGATIVE (NEGATIVE); URINE RBC 6 /uL (0-23.9); URINE UROBILINOGEN 0.2 mg/dL (0.2-1.0); URINE WBC 2 /uL (0-25.8)
[2022-05-16] MEDS ORDERED: ACETAMINOPHEN 1000 MG/100 ML BAG IVPB PRN (02:24)
[2022-05-16] MEDS ORDERED: VALPROATE SODIUM 500 MG/5 ML VIAL IVPB ONE (02:30)
[2022-05-16] MEDS ORDERED: levETIRAcetam 500 MG/5 ML INJECTION VIAL IVPB ONE (02:32)
[2022-05-16 02:46] LABS: URINE AMPHETAMINES NEGATIVE (NEGATIVE)
[2022-05-16 02:47] LABS: COCAINE, UR NEGATIVE (NEGATIVE); OPIATES, URI NEGATIVE (NEGATIVE); PHENCYCLIDINE,URINE NEGATIVE (NEGATIVE); URINE BARBITURATES NEGATIVE (NEGATIVE); URINE BENZODIAZEPINES NEGATIVE (NEGATIVE)
[2022-05-16 03:06] LABS: METHADONE, UR POSITIVE (NEGATIVE)
[2022-05-16] MEDS ORDERED: VALPROATE SODIUM IVPB ONE (03:15)
[2022-05-16] MEDS ORDERED: DEXTROSE 5% IVPB ONE (03:15)
[2022-05-16] MEDS ORDERED: WATER IVPB ONE (03:15)
[2022-05-16] MEDS ORDERED: VALPROATE SODIUM 500 MG/5 ML VIAL IVPB SCH (09:00)
[2022-05-16] MEDS ORDERED: levETIRAcetam 500 MG/5 ML INJECTION VIAL IVPB SCH (10:00)
[2022-05-16] MEDS ORDERED: LORazepam 2 MG/ML SDV VIAL IVPUSH PRN (10:09)
[2022-05-16] MEDS: ENOXAPARIN NA (PORCINE) 40 MG/0.4 ML DISP.SYRIN SQ SCH (10:28)
[2022-05-16] MEDS: VALPROATE SODIUM INJECTION 250 MG in DEXTROSE 5%-WATER - 50 ML IVPB SCH ×3 (10:28→21:47)
[2022-05-16 11:53] LABS: HEMATOCRIT 33.7 % (35.4-49); HEMOGLOBIN 11.1 GM/dL (11.7-16.9); MCH 29.1 pg (25.7-33.7); MCHC 32.8 g/dl (32.0-35.9); MEAN CELL VOLUME 88.8 fl (80-96); PLATELET COUNT 136 10^3/uL (134-434); RDW 19.8 % (11.9-15.9); WHITE BLOOD COUNT 11.1 K/mm3 (4.0-10.0)
[2022-05-16 12:15] LABS: CALCIUM 8.6 mg/dL (8.5-10.1)
[2022-05-16 12:16] LABS: ALBUMIN 2.6 g/dl (3.4-5.0); MAGNESIUM 1.7 mg/dL (1.8-2.4)
[2022-05-16 12:19] LABS: CREATININE 0.8 mg/dL (0.55-1.3); PHOSPHOROUS 4.3 mg/dL (2.5-4.9)
[2022-05-16 12:20] LABS: BILIRUBIN,TOTAL 0.4 mg/dL (0.2-1); TOT PROT 6.8 g/dl (6.4-8.2)
[2022-05-16] MEDS: DEXTROSE 5%-NORMAL SALINE 1,000 ML IV SCH (13:30)
[2022-05-16] MEDS ORDERED: CEFTRIAXONE 1 GM in DEXTROSE 5%-WATER - 50 ML IVPB ONE (17:15)
[2022-05-16] MEDS ORDERED: LORazepam 2 MG/ML SDV VIAL IM PRN (19:49)
[2022-05-16] MEDS: levETIRAcetam 500 MG/5 ML INJECTION VIAL IVPB SCH (22:55)
[2022-05-17] MEDS: VALPROATE SODIUM INJECTION 250 MG in DEXTROSE 5%-WATER - 50 ML IVPB SCH ×4 (02:11→20:14)
[2022-05-17] MEDS: levETIRAcetam 500 MG/5 ML INJECTION VIAL IVPB SCH ×2 (09:51→22:27)
[2022-05-17] MEDS: ENOXAPARIN NA (PORCINE) 40 MG/0.4 ML DISP.SYRIN SQ SCH (09:52)
[2022-05-17] MEDS ORDERED: CEFTRIAXONE 1 GM in DEXTROSE 5%-WATER - 50 ML IVPB SCH (10:00)
[2022-05-17] MEDS ORDERED: QUEtiapine FUMARATE 100 MG TABLET (FP) PO ONE (14:15)
[2022-05-17] MEDS ORDERED: methaDONE HCL 10 MG TABLET (FOR DETOX USE ONLY) PO ONE (14:18)
[2022-05-17] MEDS ORDERED: methaDONE 40 MG, methaDONE 10 MG PO ONE (15:00)
[2022-05-17] MEDS: DEXTROSE 5%-NORMAL SALINE 1,000 ML IV SCH (16:04)
[2022-05-17] MEDS: FLUoxetine HCL 20 MG CAPSULE PO SCH (16:04)
[2022-05-17 19:56] LABS: BASO % 0.7 % (0-2.0); EOS % 1.6 % (0-4.5); HEMATOCRIT 32.4 % (35.4-49); HEMOGLOBIN 10.8 GM/dL (11.7-16.9); LYMPH % 23.7 % (8-40); MCH 29.1 pg (25.7-33.7); MCHC 33.3 g/dl (32.0-35.9); MEAN CELL VOLUME 87.4 fl (80-96); MEAN PLT VOLUME 8.9 fl (7.5-11.1); MONO % 13.4 % (3.8-10.2); NEUT % 60.6 % (42.8-82.8); PLATELET COUNT 231 10^3/uL (134-434); RDW 19.7 % (11.9-15.9); WHITE BLOOD COUNT 6.8 K/mm3 (4.0-10.0)
[2022-05-17 20:14] LABS: CALCIUM 8.4 mg/dL (8.5-10.1)
[2022-05-17 20:15] LABS: ALBUMIN 2.6 g/dl (3.4-5.0); BLOOD UREA NITROGEN 12.7 mg/dL (7-18); MAGNESIUM 1.8 mg/dL (1.8-2.4)
[2022-05-17 20:18] LABS: CREATININE 0.7 mg/dL (0.55-1.3)
[2022-05-17 20:19] LABS: TOT PROT 6.8 g/dl (6.4-8.2)
[2022-05-17 20:20] LABS: BILIRUBIN,TOTAL 0.3 mg/dL (0.2-1); CHOLESTEROL 113 mg/dL (50-200); TRIGLYCERIDES 94 mg/dL (0-150)
[2022-05-17 20:21] LABS: LDL CHOLESTEROL (ONLY SJRH) 50 mg/dL (5-100)
[2022-05-17 20:22] LABS: HDL CHOLESTEROL 58 mg/dL (40-60)
[2022-05-17] MEDS: busPIRone HCL 5 MG TABLET PO SCH (22:19)
[2022-05-18] MEDS: VALPROATE SODIUM INJECTION 250 MG in DEXTROSE 5%-WATER - 50 ML IVPB SCH ×4 (03:35→21:59)
[2022-05-18 07:44] LABS: CALCIUM 8.1 mg/dL (8.5-10.1)
[2022-05-18 07:45] LABS: ALBUMIN 2.4 g/dl (3.4-5.0); BLOOD UREA NITROGEN 11.4 mg/dL (7-18); MAGNESIUM 1.9 mg/dL (1.8-2.4)
[2022-05-18 07:48] LABS: CREATININE 0.6 mg/dL (0.55-1.3)
[2022-05-18 07:49] LABS: BILIRUBIN,TOTAL 0.4 mg/dL (0.2-1)
[2022-05-18 08:12] LABS: HEMATOCRIT 29.9 % (35.4-49); HEMOGLOBIN 9.7 GM/dL (11.7-16.9); LYMPH % 35.8 % (8-40); MCH 28.5 pg (25.7-33.7); MCHC 32.6 g/dl (32.0-35.9); MEAN CELL VOLUME 87.6 fl (80-96); MEAN PLT VOLUME 9.2 fl (7.5-11.1); MONO % 18.7 % (3.8-10.2); NEUT % 40.5 % (42.8-82.8); PLATELET COUNT 229 10^3/uL (134-434); RBC 3.41 M/mm3 (4.00-5.60); RDW 19.2 % (11.9-15.9); WHITE BLOOD COUNT 6.2 K/mm3 (4.0-10.0)
[2022-05-18] MEDS: busPIRone HCL 5 MG TABLET PO SCH ×2 (10:22→22:02)
[2022-05-18] MEDS: FLUoxetine HCL 20 MG CAPSULE PO SCH (10:23)
[2022-05-18] MEDS: ASPIRIN COATED 81 MG TABLET.EC PO SCH (10:23)
[2022-05-18] MEDS: ENOXAPARIN NA (PORCINE) 40 MG/0.4 ML DISP.SYRIN SQ SCH ×2 (10:23→10:39)
[2022-05-18] MEDS: levETIRAcetam 500 MG/5 ML INJECTION VIAL IVPB SCH (10:23)
[2022-05-18] MEDS: METHADONE HCL 10 MG/ML PO SCH ×2 (10:26→21:59)
[2022-05-18] MEDS: [UNRECOGNIZED DRUG - OTHER] PO SCH ×2 (10:26→21:59)
[2022-05-18] MEDS ORDERED: methaDONE HCL 10 MG TABLET (FOR DETOX USE ONLY) PO SCH (10:30)
[2022-05-18] MEDS: DEXTROSE 5%-NORMAL SALINE 1,000 ML IV SCH (16:30)
[2022-05-18] MEDS: ATORVASTATIN CA 80 MG TABLET (FP) PO SCH (22:02)
[2022-05-18] MEDS: levETIRAcetam 250 MG TABLET PO SCH (22:02)
[2022-05-18] MEDS: DIVALPROEX SODIUM 500 MG TABLET E.C. PO SCH (22:03)
[2022-05-19 08:05] VITALS: RESP 18
[2022-05-19 09:30] LABS: ALBUMIN 2.7 g/dl (3.4-5.0); BILIRUBIN,TOTAL 0.3 mg/dL (0.2-1); BLOOD UREA NITROGEN 13.2 mg/dL (7-18); CALCIUM 8.2 mg/dL (8.5-10.1); CREATININE 0.7 mg/dL (0.55-1.3); MAGNESIUM 1.9 mg/dL (1.8-2.4); TOT PROT 6.5 g/dl (6.4-8.2)
[2022-05-19] MEDS: busPIRone HCL 5 MG TABLET PO SCH ×2 (10:47→21:35)
[2022-05-19] MEDS: ASPIRIN COATED 81 MG TABLET.EC PO SCH (10:48)
[2022-05-19] MEDS: ENOXAPARIN NA (PORCINE) 40 MG/0.4 ML DISP.SYRIN SQ SCH (10:48)
[2022-05-19] MEDS: DIVALPROEX SODIUM 500 MG TABLET E.C. PO SCH ×2 (10:48→21:35)
[2022-05-19] MEDS: FLUoxetine HCL 20 MG CAPSULE PO SCH (10:48)
[2022-05-19] MEDS: levETIRAcetam 250 MG TABLET PO SCH ×2 (10:48→21:35)
[2022-05-19] MEDS: ATORVASTATIN CA 80 MG TABLET (FP) PO SCH (21:36)
[2022-05-19 23:48] VITALS: BP 155/86; PULSE 73; TEMP 98
[2022-05-20] MEDS ORDERED: BUSPIRONE HCL 10 MG, BUSPIRONE HCL 5 MG PO SCH (10:00)
== END 2022-05-19 21:30 | DRG 101 ==
LOC: JER 12:00 → JERBED 17:38 → J4S 05-16 00:10
PROVIDERS: ADMIT Internal Medicine; ATTEND Nurse Practitioner Family
DX: R56.9 Unspecified convulsions (principal); F11.20 Opioid dependence, uncomplicated; N39.0 Urinary tract infection, site not specified; K59.00 Constipation, unspecified; R41.82 Altered mental status, unspecified; J44.9 Chronic obstructive pulmonary disease, unspecified; F17.200 Nicotine dependence, unspecified, uncomplicated; D35.2 Benign neoplasm of pituitary gland; F41.8 Other specified anxiety disorders; R79.89 Other specified abnormal findings of blood chemistry; D72.829 Elevated white blood cell count, unspecified; F25.9 Schizoaffective disorder, unspecified; Z86.711 Personal history of pulmonary embolism
CPT/HCPCS: 0241U-QW; 36415; 36600; 70450-TC; 70551-TC; 71045-TC-FY; 71275-TC; 80048; 80053; 80061; 80164; 80177; 80307; 81003; 82140; 82803; 82962; 83605; 83735; 84100; 84484; 85025; 85027; 87040; 87086; 93005; 93010; 93306-TC; 95816; 97116-GP; 97161-GP; 99285-25; Q9967